=== PATIENT | female | born 1980 | race African-American/Black ===

== ENCOUNTER 2016-09-28 05:39 | Observation (INO) | payer OTHER ==
[2016-09-27 09:02] VITALS: Ht 170.2 cm; Wt 82.3 kg
[2016-09-28] VITALS (22 sets, daily range): BP systolic 93–119; BP diastolic 44–81; PULSE 76–110; RESP 13–20
[~2016-09-28] VITALS: Ht 170.2 cm; Wt 82.3 kg
[~2016-09-28 05:39] MED LIST: DENIES
--- NOTE | 2016-09-28 06:37 | PREOPHP ---
DATE OF ADMISSION: 09/28/2016 REASON FOR ADMISSION: The patient is to be admitted tomorrow, 09/28/2016, for a vaginal hysterectom y, possible abdominal hysterectomy. CHIEF COMPLAINT: Pelvic pressure and dyspareunia. HISTORY OF PRESENT ILLNESS: This is a 35-year-old female, 3, para 3, who has been complaini ng of pelvic pressure, pain and dyspareunia pain with sexual intercourse. This interferes with her sexual activity. The patient is admitted for a total vaginal hysterectomy, possible total abdominal hysterectomy. Both procedures were discussed with the patient in detail in the office. The altern atives, benefits, the risks and possible complications of the procedures like infection, hemorrhage, and pelvic organ injury were discussed in detail. This was graphically shown to the patient also. She was made aware that she will not be able to bear children. Also, made aware that she would nev er have a period again. All her questions were answered to her satisfaction, and she signed the raz ropriate surgical informed consent. PAST MEDICAL HISTORY: The patient denies any medical problems. Denies diabetes, cardiovascular dis ease, hypertension, renal disease, liver disease, thyroid disease, or neurological problems. ALLERGIES: NO KNOWN ALLERGIES. MEDICATIONS: She is taking no medications on a regular basis. FAMILY HISTORY: Noncontributory. REVIEW OF SYSTEMS: A 12-point review of systems is noncontributory. PHYSICAL EXAMINATION: GENERAL: Well-developed and nourished, slightly obese with a height of 5 feet 7 inches and a weight of 180 pounds. VITAL SIGNS: Showed the temperature to be 98, the pulse is 80 per minute regular, respirations 16 p er minute, and blood pressure 112/87. HEENT: Within normal limits. Pupils are PERRLA. NECK: Supple. The thyroid is nonpalpable. There is no lymphadenopathy. BREASTS: Show no masses or lumps. LUNGS: Clear to percussion and auscultation. HEART: Normal sinus rhythm without a murmur. ABDOMEN: Soft without organomegalies or hernias. PELVIC: Normal external genitalia. The vagina is normal. The cervix is enlarged, hypertrophic. B imanual exam: The uterus is slightly enlarged in the midline, firm, mobile. There are no adnexal m asses present. EXTREMITIES: Within normal limits. NEUROLOGIC: Also normal. IMPRESSION: Chronic pelvic pain, chronic dyspareunia. Chronic cervicitis with hypertrophy. PLAN: The patient is to be admitted for a total vaginal hysterectomy, possible total abdominal hyst erectomy tomorrow, 09/28/2016. Dictated By: JEANNINE LAFLEUR/NTS Conf#: [id number] DID#: [id number] CC: CESAR JAVIER MD;*End*
[2016-09-28] MEDS ORDERED: BUPIVACAINE 0.5%/EPI (SDV) 30 ML INJ ONE (07:01)
[2016-09-28] MEDS ORDERED: VASOPRESSIN 20 UNITS INJ ONE (07:02)
[2016-09-28] MEDS ORDERED: FENTAnyl 50 MCG/ML VIAL ONE ×2 (07:24→08:29)
[2016-09-28] MEDS ORDERED: morphine SULFATE/PF (10 MG/10 ML) INJ ONE (07:24)
[2016-09-28] MEDS ORDERED: MIDAZOLAM 1 MG/ML 2 ML INJ ONE ×2 (07:28)
[2016-09-28] MEDS ORDERED: PROPOFOL 100 ML ONE (07:29)
[2016-09-28] MEDS ORDERED: BUPIVACAINE 0.5%/EPI (SDV) 30 ML INJ INJ ONE (07:58)
[2016-09-28] MEDS ORDERED: VASOPRESSIN 20 UNITS INJ IV ONE (07:58)
[2016-09-28] MEDS ORDERED: HYDROmorphONE 1 MG/ML SYG IV PRN ×2 (08:00)
[2016-09-28] MEDS ORDERED: METOCLOPRAMIDE 10 MG INJ IV PRN (08:00)
[2016-09-28] MEDS ORDERED: MEPERIDINE 25 MG INJ IV PRN (08:00)
[2016-09-28] MEDS ORDERED: HYDROCODONE/APAP (5/325) TAB PO PRN (08:00)
[2016-09-28] MEDS ORDERED: ONDANSETRON 4 MG INJ IV PRN ×3 (08:00→09:30)
[2016-09-28] MEDS ORDERED: DIPHENHYDRAMINE 50 MG INJ IV PRN (08:00)
[2016-09-28] MEDS ORDERED: NALBUPHINE HCL (10 MG/1 ML) INJ IV PRN (08:00)
[2016-09-28] MEDS ORDERED: NALOXONE (0.4 MG/ML) INJ IV PRN (08:00)
[2016-09-28] MEDS ORDERED: ZOLPIDEM 5 MG TAB PO PRN (08:00)
[2016-09-28] MEDS ORDERED: LABETALOL HCL 20MG INJ IV PRN (08:00)
[2016-09-28] MEDS ORDERED: hydrALAzine 20 MG INJ IV PRN (08:00)
[2016-09-28] MEDS ORDERED: hydrALAzine 20 MG INJ ONE (08:07)
[2016-09-28] MEDS ORDERED: LABETALOL HCL 20MG INJ ONE (08:10)
[2016-09-28] MEDS ORDERED: DEXAMETHASONE 4 MG/ML 1 ML INJ ONE (08:16)
[2016-09-28] MEDS ORDERED: ACETAMINOPHEN 1000MG/100ML IV 100 ML ONE (08:30)
[2016-09-28] MEDS ORDERED: ROCURONIUM 50 MG INJ ONE (08:32)
[2016-09-28] MEDS ORDERED: ONDANSETRON 4 MG INJ ONE (08:32)
[2016-09-28] MEDS ORDERED: LIDOCAINE 2% (SDV) 5 ML INJ ONE (08:33)
[2016-09-28] MEDS ORDERED: KETOROLAC 30 MG INJ IV PRN (09:30)
[2016-09-28] MEDS ORDERED: OXYCODONE/ACETAMINOPHEN (5/325) TAB PO PRN ×2 (09:30)
[2016-09-28] MEDS ORDERED: ACETAMINOPHEN 325 MG TAB PO PRN (09:30)
[2016-09-28] MEDS ORDERED: CEFAZOLIN 2 GM/50 ML (PMX) 50 ML IVPB SCH (10:00)
[2016-09-28] MEDS ORDERED: ACETAMINOPHEN 1000MG/100ML IV 100 ML IVPB SCH (12:00)
--- NOTE | 2016-09-28 12:19 | OPR ---
DATE OF OPERATION: 09/28/2016 PREOPERATIVE DIAGNOSES: 1. Uterine prolapse. 2. Chronic pelvic pain and severe dyspareunia. POSTOPERATIVE DIAGNOSES: 1. Uterine prolapse. 2. Chronic pelvic pain and severe dyspareunia. 3. Possible adenomyosis. The uterus was enlarged with a of about 12 weeks. OPERATION PERFORMED: Total vaginal hysterectomy. SURGEON: Jeannine Medley MD. BLOCK HACKER: Dr. Cesra De Jesus ANESTHESIA: Spinal and general. ANESTHESIOLOGIST: Dr. Surendra Leavitt ESTIMATED BLOOD LOSS: 100 mL. COMPLICATIONS: None. SPECIMENS: Uterus was sent to pathology. PROCEDURE AND FINDINGS: With the patient under general anesthesia after a spinal, she was laid on t he table in the dorsal lithotomy position. Her lower abdomen, upper thighs, perineum and vagina wer e prepped with Betadine and after 3 minutes she was draped in the usual sterile fashion for this pro cedure. She had a Hastings catheter draining her bladder. A weighted posterior retractor was placed i n the posterior vaginal wall and the cervix, which was at the level of the introitus, was grasped wi th a Erwin clamp. It was infiltrated with a solution of diluted vasopressin, 20 units in 50 mL of s gabino, of which 15 mL were used. Also 0.5% Marcaine with epinephrine was used, for a total of 20 mL . The vaginal mucosa was opened circumferentially around the cervix. Then the endopelvic fascia wa s also opened with scissors around the cervix. The posterior cul-de-sac of Janak was entered and a long beak weighted retractor was placed into the abdominal cavity. The left uterosacral ligament was then isolated, clamped with a Naif clamp, cut and sutured with 0 Vicryl. This was held for fu ture reference. The cardinal ligament on the left side then was identified, clamped with a Naif c lamp, cut and sutured with 0 Vicryl. The same was done on the contralateral side. The anterior per itoneal cul-de-sac was then visualized and opened with Metzenbaum scissors. The right-angle retract or was advanced to protect the bladder. The uterine vessels were skeletonized bilaterally. The lef t side was clamped first with a Naif clamp, cut and sutured twice with 0 Vicryl. Good hemostasis was observed. The same was done on the contralateral side. Then the uterus was flipped posteriorly with a towel clip. The upper pedicle consisting of the uteroovarian ligament and round ligament hardwick d to be taken with 2 separate clamps on both sides before cutting because they were very bulky. The uterus was then removed. The uterus was significantly enlarged with a of about 12 weeks in size, probably with adenomyosis, and so did the cervix, it was very hypertrophic. The pedicles w ere secured with double sutures of 0 Vicryl that were held for reference. Small bleeders in the cuf f were also controlled with [id number] sutures of 0 Vicryl. A wet sponge stick was used to pus h the omentum and bowels away to see the whole circumference off the vaginal vault. There was no ac tive bleeding. The posterior leaf of the mucosa of the vagina was closed through the posterior agustin toneum with a continuous running stitch of double 0 Vicryl. Good hemostasis was observed. The uter osacral ligaments were now tied in the center. This closed the posterior cul-de-sac. Small bleeder s were encountered and the circumference of the vagina were treated with cautery successfully. Then the vaginal cuff was closed with several [id number] sutures of 0 Vicryl. Good hemostasis was observed. The patient withstood the procedure well. The EBL was less 100 mL. Needle, sponge and i nstrument count at the end of the procedure was correct twice. The urine in the Hastings was clear. Dictated By: JEANNINE LAFLEUR/BERNARDA Conf#: [id number] DID#: [id number] CC: CESAR DE JESUS MD; SURENDRA LEAVITT MD;*[facility]*
[2016-09-28] MEDS: LACTATED RINGER'S 1,000 ML IV SCH (14:23)
[2016-09-28] MEDS: METOCLOPRAMIDE 10 MG INJ IV SCH ×2 (14:24→19:21)
[2016-09-28] MEDS: PANTOPRAZOLE 40 MG INJ IV SCH (14:24)
[2016-09-28] MEDS: CEFAZOLIN 2 GM/50 ML (PMX) 50 ML IVPB SCH (16:23)
[2016-09-28] MEDS: IBUPROFEN 600 MG TAB PO PRN (19:12)
[2016-09-28] MEDS: ACETAMINOPHEN 1000MG/100ML IV 100 ML IVPB SCH (19:51)
[2016-09-29] MEDS: LACTATED RINGER'S 1,000 ML IV SCH ×2 (01:03→07:00)
[2016-09-29] MEDS: CEFAZOLIN 2 GM/50 ML (PMX) 50 ML IVPB SCH ×2 (01:03→10:09)
[2016-09-29] MEDS: METOCLOPRAMIDE 10 MG INJ IV SCH ×3 (01:03→12:41)
[2016-09-29] MEDS: ACETAMINOPHEN 1000MG/100ML IV 100 ML IVPB SCH ×2 (01:57→09:12)
[2016-09-29 05:11] LABS: POTASSIUM 4.3 mmol/L (3.5-5.1)
[2016-09-29 05:12] LABS: HEMATOCRIT 36.2 % (37.0-47.0); HEMOGLOBIN 12.2 g/dl (12.0-16.0); LYMPHOCYTES # 1.6 10^3/ul (0.8-2.9); LYMPHOCYTES % 11.2 % (15.0-51.0); MEAN CORPUSCULAR HEMOGLOBIN 28.4 pg (29.0-33.0); MEAN CORPUSCULAR HGB CONC 33.6 g/dl (32.0-37.0); MEAN CORPUSCULAR VOLUME 84.4 fl (82.0-101.0); MEAN PLATELET VOLUME 7.5 fl (7.4-10.4); MONOCYTE # 0.8 10^3/ul (0.3-0.9); MONOCYTES % 5.6 % (0.0-11.0); NEUTROPHIL # 11.8 10^3/ul (1.6-7.5); NEUTROPHILS % 83.2 % (39.0-77.0); PLATELET COUNT 391 10^3/UL (140-440); RED BLOOD COUNT 4.29 10^6/ul (4.20-5.40); RED CELL DISTRIBUTION WIDTH 14.3 % (11.5-14.5); UNCORRECTED WBC 14.2 10^3/ul (4.8-10.8); WHITE BLOOD COUNT 14.2 10^3/ul (4.8-10.8)
[2016-09-29 05:14] LABS: CREATININE 0.81 mg/dl (0.44-1.00)
[2016-09-29 05:15] LABS: CALCIUM 8.5 mg/dl (8.4-10.2)
[2016-09-29 05:16] LABS: CONDITION 1
[2016-09-29] MEDS: PANTOPRAZOLE 40 MG INJ IV SCH (05:26)
[2016-09-29 06:54] VITALS: BP 121/67; PULSE 72; RESP 18
[2016-09-29 07:00] VITALS: BP 100/57; RESP 20
--- NOTE | 2016-09-29 08:12 | PD.PPDC ---
KARDEX CLERK Discharge Instruction Diagnosis Final Diagnosis: Chroninc pelvic pain,uterine prolapse Condition Patient Condition: Good Diet Diet: Resume Regular Diet Activity/Restrictions Activity: Normal Activity May Shower Restrictions: No Exercising No Lifting No Driving No Sexual Activity Nothing in the Vagina No Tampons, douche Follow-up Follow-up with Physician: 1, Week/Weeks Return to clinic for EMPLOYEE COMMUNICATIONS INTERN Instructions: Fever greater than 101 Worsening abdominal pain Excessive Vaginal Bleeding More than 2 pads per hour JEANNINE RED MD Sep 29, 2016 08:12
--- NOTE | 2016-09-29 10:31 | DS ---
DATE OF ADMISSION: 09/28/2016 DATE OF DISCHARGE: FINAL DIAGNOSES: 1. Chronic pelvic pain. 2. Uterine prolapse. 3. Suspected adenomyosis. SUMMARY: This is a 35-year-old female, multipara, 3, para 3, who had been complaining of ch ronic pelvic pain and severe dyspareunia. She was brought in for total vaginal hysterectomy. This procedure was done under general anesthesia without any problems. Today, she is on her first day po stop, doing well. She is passing gases. The Hastings catheter had been removed and she was able to ur inate with no problems. She is tolerating p.o. feeding with no problems either. She was discharged home with written instructions. She is to follow up with me in the office in 1 week. She is in go od condition on a regular diet. I gave her a prescription for Percocet to use 1 or 2 tablets every 6 hours p.r.n. pain. She was discharged in good condition. Dictated By: JEANNINE LAFLEUR/BERNARDA Conf#: [id number] DID#: [id number] CC: CESAR JAVIER MD;*[facility]*
[2016-09-29] MEDS ORDERED: HYDROCODONE/APAP (5/325) TAB PO PRN (12:00)
[2016-09-29] MEDS ORDERED: ACETAMINOPHEN 325 MG TAB PO PRN (12:00)
[2016-09-29] MEDS ORDERED: OXYCODONE/ACETAMINOPHEN (5/325) TAB PO PRN ×2 (12:00)
[2016-09-29] MEDS: IBUPROFEN 600 MG TAB PO PRN (12:46)
== END 2016-09-29 14:25 | disposition home or self-care (01) ==
LOC: SDS 05:39 → MS1 09:12
PROVIDERS: ADMIT Specialist; ATTEND Specialist
DX: O34.521 Maternal care for prolapse of gravid uterus, first trimester (principal); N81.4 Uterovaginal prolapse, unspecified; O23.511 Infections of cervix in pregnancy, first trimester; Z3A.12 12 weeks gestation of pregnancy; O09.521 Supervision of elderly multigravida, first trimester
CPT/HCPCS: 58260; 80048; 84703; 85025; 86850; 86900; 86901; 87086; 88307; 96365; 96366; 96375; 96376; C9113; J0131; J0360; J0690; J1100; J2250; J2274; J2405; J2765; J3010; J7120; Z7500; Z7512; Z7610; G0378